=== PATIENT | female | born 1960 | race Caucasian/White ===

== ENCOUNTER → 2021-01-25 | Outpatient (CLI) | payer BC | LOC: COL.RAD 13:54 | DX: R59.0 Localized enlarged lymph nodes (principal); R07.89 Other chest pain; Z85.3 Personal history of malignant neoplasm of breast; Z90.13 Acquired absence of bilateral breasts and nipples; Z98.82 Breast implant status ==

== ENCOUNTER 2023-08-28 20:08 | Emergency (ER) | payer BC ==
[~2023-08-28] VITALS: Ht 154.9 cm; Wt 48.2 kg
[2023-08-28 20:47] VITALS: TEMP 98.1
[2023-08-28 21:45] VITALS: BP 132/65; PULSE 75
== END 2023-08-28 21:45 | disposition home or self-care (01) ==
LOC: COL.ER 20:08
DX: S91.312A Laceration without foreign body, left foot, initial encounter (principal); W25.XXXA Contact with sharp glass, initial encounter

== ENCOUNTER 2024-03-18 19:21 | Emergency (ER) | payer SELFPAY ==
[~2024-03-18] VITALS: Ht 154.9 cm; Wt 50.0 kg
[2024-03-18 19:37] VITALS: TEMP 97.9
[2024-03-18] MEDS ORDERED: NS 1,000 ML IV ONE (20:00)
[2024-03-18 20:03] LABS: BASO % 0.6 % (0.0-2.0); EOS # 0.3 K/mm3 (0.0-0.7); EOS % 4.6 % (0.0-4.0); GRAN # 3.7 K/mm3 (1.4-6.5); GRAN % 54.5 % (42.2-75.2); HEMOGLOBIN 11.9 g/dl (12.5-16.0); LYMPH # 2.2 K/mm3 (1.2-3.4); LYMPH % 32.6 % (20.0-51.0); MEAN CELL VOLUME 95 fl (80.0-100.0); MEAN CORPUSCULAR HEMOGLOBIN 32 pg (27-31); MEAN CORPUSCULAR HGB CONC 34 g/dl (33.0-37.0); MEAN PLATELET VOLUME 10.3 fl (7.4-10.4); MONO # 0.5 K/mm3 (0.1-0.6); MONO % 7.6 % (1.7-9.3); PLATELET COUNT 210 K/mm3 (130-400); RED BLOOD COUNT 3.72 M/mm3 (4.10-5.30)
[2024-03-18 20:04] LABS: HEMATOCRIT 35.5 % (37.0-47.0)
[2024-03-18 20:11] LABS: INR 0.9 (0.8-3.0)
[2024-03-18] MEDS ORDERED: levETIRAcetam 1,000 MG in Syringe 1 EACH IV ONE (20:15)
[2024-03-18] MEDS ORDERED: dexAMETHasone 10 MG/ML VIAL IV ONE (20:15)
[2024-03-18] MEDS ORDERED: Iohexol 300 - 100 ML VIAL IV ONE (20:17)
[2024-03-18] MEDS ORDERED: NS 50 ML IV ONE (20:18)
[2024-03-18 20:24] LABS: ALANINE AMINOTRANSFERASE 27 U/L (0-55); ALKALINE PHOSPHATASE 53 U/L (40-150); ANION GAP 9 mmol/L (7-16); AST,SGOT 28 U/L (5-34); BILIRUBIN,TOTAL 0.3 mg/dL (0.2-1.2); BLOOD UREA NITROGEN 25 mg/dL (10-20); CALCIUM 9.4 mg/dL (8.4-10.2); CHLORIDE 108 mEq/L (98-107); CREATININE, serum 0.79 mg/dL (0.57-1.11); GLUCOSE 104 mg/dL (70-99); POTASSIUM 4.5 mEq/L (3.5-4.5); SODIUM 141 mEq/L (136-145); TOTAL PROTEIN 6.9 g/dl (6.2-8.1)
[2024-03-18 20:29] LABS: ALCOHOL(ethanol),MEDICAL < 10 mg/dL (0-10)
[2024-03-18 20:30] LABS: TROPONIN-I 0.012 ng/mL (0.00-0.033)
[2024-03-18 22:00] VITALS: BP 149/85; PULSE 77
== END 2024-03-18 22:00 | disposition short-term general hospital (02) ==
LOC: COL.ER 19:21
PROVIDERS: Emergency Medicine
DX: I63.542 Cerebral infarction due to unspecified occlusion or stenosis of left cerebellar artery (principal); R47.01 Aphasia; Z85.3 Personal history of malignant neoplasm of breast
CPT/HCPCS: J7030; Q9967